=== PATIENT | male | born 1960 | race African-American/Black ===

== ENCOUNTER 2016-11-27 10:21 | Emergency (ER) | payer SELFPAY ==
[~2016-11-27] VITALS: Ht 170.2 cm; Wt 76.6 kg
[2016-11-27 10:48] VITALS: BP 170/85
[2016-11-27] MEDS ORDERED: ULTRAM50 MG PO (12:51)
[2016-11-27] MEDS ORDERED: PEN-VEE K,VEET500 MG PO (12:51)
== END 2016-11-27 13:04 | disposition home or self-care (01) ==
LOC: EME 10:21
DX: K02.9 Dental caries, unspecified (principal); F17.200 Nicotine dependence, unspecified, uncomplicated
CPT/HCPCS: 99281; 99282